=== PATIENT | female | born 1955 | race African-American/Black ===

== ENCOUNTER 2016-12-19 02:54 | Emergency (ER) | payer MEDICARE ==
[~2016-12-19] VITALS: Ht 160 cm; Wt 111.1 kg
[2016-12-19 03:10] VITALS: BP_SYST 159
--- NOTE | 2016-12-19 04:00 | NUR ---
Patient to ER bed 3 to gown for evaluation. Side rails up. Report given to Ovidio NOLASCO.
--- NOTE | 2016-12-19 04:05 | NUR ---
Patient arrived to ED a/o x 4 with c/o sharp RLQ ABD pain x 3 days. Denies N/V. Denies fever. Denies change in appetite. No distention noted. Bowel sounds present x 4 quadrants. Last BM this morning. States the pain is keeping her from sleeping. Does not appear in immediate distress at this time. Will continue to monitor.
--- NOTE | 2016-12-19 04:10 | NUR ---
ED MD Ellis at bedside for medical evaluation.
--- NOTE | 2016-12-19 05:00 | NUR ---
Patient resting quietly. No acute distress noted. Vital signs within normal range.
[2016-12-19] MEDS ORDERED: KETOROLAC TROMETHAMINE 60 MG/2 ML VIAL IM ONE (05:15)
--- NOTE | 2016-12-19 05:50 | NUR ---
ED MD Ellis at bedside with patient for reassessment.
[2016-12-19 06:02] VITALS: BP_SYST 159
--- NOTE | 2016-12-19 06:02 | NUR ---
Patient given written and verbal discharge instructions and verbalizes understanding. ER MD discussed with patient the results and treatment provided. Patient in stable condition. ID arm band removed. Rx of Magnolia and Prilosec given. Patient educated on pain management and to follow up with PMD. Pain Scale 2/10. Opportunity for questions provided and answered.
== END 2016-12-19 06:02 | disposition home or self-care (01) ==
LOC: SED 02:54
DX: M54.5 Low back pain (principal); R10.12 Left upper quadrant pain; E11.9 Type 2 diabetes mellitus without complications; Z88.6 Allergy status to analgesic agent
CPT/HCPCS: 96372; 99283; J1885